=== PATIENT | male | born 1950 | race Caucasian/White ===

== ENCOUNTER → 2017-03-28 | Outpatient (CLI) | payer MEDICARE, OTHER ==
[2017-03-28 07:46] LABS: HEMOGLOBIN 15.9 g/dL (14.1-18.0); LYMPH # 2.4 K/mm3 (0.7-4.5); LYMPH % 32.6 % (10-50)
[2017-03-28 07:55] LABS: BUN 24 mg/dL (7-18)
[2017-03-28 08:00] LABS: GFR (ESTIMATED) 74 ML/MIN (>60)
== END ==
LOC: LAB 07:30
PROVIDERS: Internal Medicine Adolescent Medicine
DX: E78.5 Hyperlipidemia, unspecified (principal); M19.90 Unspecified osteoarthritis, unspecified site